=== PATIENT | male | born 1975 | race Caucasian/White ===

== ENCOUNTER 2021-01-12 11:31 | Emergency (ER) | payer OTHER ==
[~2021-01-12] VITALS: Ht 172.7 cm; Wt 95.3 kg
[2021-01-12 11:35] VITALS: BP 168/117
--- NOTE | 2021-01-12 11:43 | NUR ---
Pt ambulated to ER bed 3.
--- NOTE | 2021-01-12 11:47 | NUR ---
45 Y/O MALE C/O ABD PAIN 03/11 DESCRIBES "SIMILAR PAIN TO PAST PANCREATITIS" X4 DAYS. PT DENIES N/V/D. DENIES FEVER/CHILLS. ABDOMEN IS SOFT, ROUND, NON-TENDER, BOWEL SOUNDS ACTIVE X4, LAST BM 01/11/21. PMH: ACUTE PANCREATITIS, HTN NKA
--- NOTE | 2021-01-12 12:11 | NUR ---
Dr. Zamora at pt bedside for further evaluation.
[2021-01-12 12:50] LABS: HEMATOCRIT 45.5 % (36-52); HEMOGLOBIN 15.4 g/dL (12.0-18.0); MEAN CORPUSCULAR HEMOGLOBIN 29 pg (27-31); MEAN CORPUSCULAR HGB CONC 34 g/dL (33-37); MEAN CORPUSCULAR VOLUME 87.1 fL (80-94); PLATELET COUNT (AUTO) 329 K/uL (140-450); RED BLOOD CELL COUNT(AUTO) 5.23 MIL/uL (4.20-6.10); RED CELL DISTRIBUTION WIDTH 13.9 % (11.6-13.7)
--- NOTE | 2021-01-12 12:55 | NUR ---
PATIENT TAKEN TO CT VIA WHEELCHAIR
[2021-01-12 13:29] LABS: ALBUMIN 2.9 g/dL (3.4-5.0); ANION GAP 16.2 (8-16); CARBON DIOXIDE 25.5 mmol/L (21-32); CREATININE 0.9 mg/dL (0.6-1.3); EOSINOPHILS % (MANUAL) 1 % (0-4); LYMPHOCYTES % (MANUAL) 10 % (20-46); MONOCYTES % (MANUAL) 13 % (5-12); POTASSIUM 3.7 mmol/L (3.5-5.1); TOTAL BILIRUBIN 0.8 mg/dL (0.0-1.0)
[2021-01-12] MEDS ORDERED: LISI30TA6 PO ×2 (14:19→14:20)
[2021-01-12] MEDS ORDERED: MIRABULK PO ×2 (14:19→14:20)
[2021-01-12 14:34] VITALS: BP 168/117
--- NOTE | 2021-01-12 14:34 | NUR ---
Patient discharged with v/s stable. Written and verbal after care instructions given ABD PAIN and explained. Patient alert, oriented and verbalized understanding of instructions. Ambulatory with steady gait. All questions addressed prior to discharge. ID band removed. Patient advised to follow up with PMD. Rx of LISINOPRIL 30MG PO DAILY, AN MIRALAX 1 CAP DAILY PRN CONSTIPATION given. Patient educated on indication of medication including possible reaction and side effects. Opportunity to ask questions provided and answered.
== END 2021-01-12 14:34 | disposition home or self-care (01) ==
LOC: MED 11:31
DX: K59.00 Constipation, unspecified (principal); R10.84 Generalized abdominal pain; I10 Essential (primary) hypertension; Z79.899 Other long term (current) drug therapy
CPT/HCPCS: 36415; 74021; 80053; 83690; 85025; 99285

== ENCOUNTER 2023-10-04 23:35 | Emergency (ER) | payer MEDICAID, OTHER ==
[~2023-10-04] VITALS: Ht 170.2 cm; Wt 99.8 kg
[~2023-10-04 23:35] MED LIST: LISI30TA6 PO; MIRABULK PO
[2023-10-05] VITALS: BP 144/99; PULSE 103; RESP 18; TEMP 98.6; O2SAT 96
[2023-10-05 00:23] VITALS: BP 144/99; PULSE 103; RESP 18; TEMP 98.6; O2SAT 98
[2023-10-05 00:38] LABS: FLU A ANTIGEN POSITIVE (NEGATIVE); FLU B ANTIGEN NEGATIVE (NEGATIVE)
== END 2023-10-05 01:23 | disposition home or self-care (01) ==
LOC: MED 23:35
DX: J10.1 Influenza due to other identified influenza virus with other respiratory manifestations (principal); Z20.822 Contact with and (suspected) exposure to COVID-19; I10 Essential (primary) hypertension; Z79.899 Other long term (current) drug therapy
CPT/HCPCS: 99283